=== PATIENT | male | born 1945 | race Two or more races ===

== ENCOUNTER 2019-03-18 05:45 | Day surgery (SDC) | payer OTHER ==
[~2019-03-18 05:45] MED LIST: TAMS0.4C PO
[2019-03-18] MEDS ORDERED: ULTRACET PO (09:44)
[2019-03-18] MEDS ORDERED: SURFAK240 M1 PO (09:45)
[2019-03-18] MEDS ORDERED: POLY119PG PO (09:45)
== END 2019-03-18 13:50 | disposition home or self-care (01) ==
LOC: CIR.AMB 05:45
DX: K40.90 Unilateral inguinal hernia, without obstruction or gangrene, not specified as recurrent (principal); K43.0 Incisional hernia with obstruction, without gangrene; K42.0 Umbilical hernia with obstruction, without gangrene

== ENCOUNTER 2019-03-19 00:26 | Emergency (ER) | payer OTHER ==
[~2019-03-19] VITALS: Ht 177.8 cm; Wt 81.6 kg
[~2019-03-19 00:26] MED LIST changes: +POLY119PG PO; +SURFAK240 M1 PO; +ULTRACET PO
== END 2019-03-19 04:19 ==
LOC: ER 00:26
DX: N99.89 Other postprocedural complications and disorders of genitourinary system (principal); R33.8 Other retention of urine